=== PATIENT | female | born 1990 | race Hispanic/Latino ===

== ENCOUNTER 2017-04-26 15:58 | Emergency (ER) | payer OTHER ==
[2017-04-26 16:20] VITALS: BP 133/60; PULSE 72; RESP 18; TEMP 97.2; O2SAT 99
--- NOTE | 2017-04-26 17:18 | ED PDOC ---
HPI: Skin/Bite Injury Time Seen by Provider: 04/26/17 16:39 Chief Complaint (Nursing): Abnormal Skin Integrity Chief Complaint (Provider): Insect bites History Per: Patient History/Exam Limitations: no limitations Onset/Duration Of Symptoms: Days (4) Current Symptoms Are (Timing): Still Present Quality Of Symptoms: Itching Additional Complaint(s): Erin Cruz is a 26 y/o female presenting to the ER on 04/26/2017 with complaints of insect bites for four days. Patient reports four days ago she noted a pruritic rash to her left arm at [employer], where she works. Patient says the number of lesions have increased in number every time she went to work. Today, she noted pruritic lesions on her arms bilaterally, prompting her to seek medical evaluation. Patient denies associated swelling around the lesions, nausea, vomiting, fever, abdominal pain, shortness of breath, or swelling to her extremities/eyes/tongue. Past Medical History Reviewed: Historical Data, Nursing Documentation, Vital Signs Vital Signs: Last Vital Signs Temp 97.2 F L 04/26/17 16:18 Pulse 72 04/26/17 16:18 Resp 18 04/26/17 16:18 BP 133/60 04/26/17 16:18 Pulse Ox 99 04/26/17 17:27 - Medical History PMH: No Chronic Diseases - Surgical History Other surgeries: adenoid - Family History Family History: States: No Known Family Hx, Unknown Family Hx - Social History Current smoker - smoking cessation education provided: Yes Alcohol: Social Drugs: Denies - Home Medications Home Medications: Ambulatory Orders Medication Instructions Recorded Calamine/Pramoxine [Caladryl] 180 ml TP DAILY #1 bottle 04/26/17 Methylprednisolone [Medrol Dose 4 mg PO DAILY #21 mg 04/26/17 Pack (21 tabs)] - Allergies Allergies/Adverse Reactions: Allergies Allergy/AdvReac Type Severity Reaction Status Date / Time Sulfa (Sulfonamide Allergy RASH Verified 04/26/17 16:17 Antibiotics) Review of Systems ROS Statement: Except As Marked, All Systems Reviewed And Found Negative Constitutional: Negative for: Fever Respiratory: Negative for: Shortness of Breath Gastrointestinal: Negative for: Nausea, Vomiting, Abdominal Pain Skin: Positive for: Lesions Physical Exam - Reviewed Nursing Documentation Reviewed: Yes Vital Signs Reviewed: Yes - Physical Exam Appears: Positive for: Well, Non-toxic Head Exam: Positive for: ATRAUMATIC, NORMOCEPHALIC Skin: Positive for: Rash (papular lesions, blanching isolated all over forearm extending to scapular back with few on the right arm. no other lesions are noted ) Eye Exam: Positive for: Normal appearance ENT: Positive for: Normal ENT Inspection ((-) tongue swelling; (-) lip swelling ) Neck: Positive for: Normal, Painless ROM, Supple Back: Positive for: Normal Inspection Extremity: Positive for: Normal ROM. Negative for: Deformity, Swelling Neurologic/Psych: Positive for: Alert, Oriented. Negative for: Motor/Sensory Deficits - ECG O2 Sat by Pulse Oximetry: 99 Medical Decision Making Medical Decision Makin:39 Initial Impression- 26 y/o female with insect bites Pt will be discharged routinely with medrol dose pack, topical steroid cream, and systemic steroids. Pt was advised to remove herself from her workplace and to follow up with [facility] [employer]. Pt was given return precautions if symptoms persist or worsen. Condition is stable for discharge. Documented by Maral Garrido, acting as a scribe for Maya Kat PA-C All medical record entries made by the Scribe were at my direction and personally dictated by me. I have reviewed the chart and agree that the record accurately reflects my personal performance of the history, physical exam, medical decision making, and the department course for this patient. I have also personally directed, reviewed, and agree with the discharge instructions and disposition. Disposition - Clinical Impression Clinical Impression: Insect bites - Patient ED Disposition Is Patient to be Admitted: No - Disposition Disposition: Routine/Home Disposition Time: 17:25 Condition: STABLE Prescriptions: Calamine/Pramoxine [Caladryl] 180 ml TP DAILY #1 bottle Methylprednisolone [Medrol Dose Pack (21 tabs)] 4 mg PO DAILY #21 mg Instructions: Insect Bite or Sting (ED) Forms: [facility] ED School/Work Excuse
== END 2017-04-26 18:05 | disposition home or self-care (01) ==
LOC: H.ER 15:58
DX: T14.8 Other injury of unspecified body region (principal)